=== PATIENT | female | born 1965 | race Caucasian/White ===

== ENCOUNTER 2022-05-21 16:35 | Emergency (ER) | payer SELFPAY ==
[2022-05-21 16:56] VITALS: BP 153/73; PULSE 81; RESP 16; TEMP 37.3; O2SAT 99
--- NOTE | 2022-05-21 17:46 | ED.GENADULT ---
HPI - General Adult General Chief complaint: Unspecified Stated complaint: HBP Time Seen by Provider: 05/21/22 17:40 Source: patient, RN notes reviewed and old records reviewed Mode of arrival: ambulatory Limitations: no limitations History of Present Illness HPI narrative: 57-year-old female who recently moved to the area from around [place] now has a new patient appointment with physician but soonest she can get in was in August and is concerned about having enough blood pressure medication to last till her appointment.Patient takes Losartan/ HCTZ with dosage verified per bottle. Patient states that she is compliant with medication regime. MD complaint: need for refill of new medication Treatments prior to arrival: other (taking medication for blood pressure but will not have enough till apt with new physician) Related Data Home Medications Medication Instructions Recorded Confirmed losartan 05/21/22 Allergies Allergy/AdvReac Type Severity Reaction Status Date / Time No Known Allergies Allergy Verified 05/21/22 16:38 Review of Systems Review of Systems: CONSTITUTIONAL: Denies fever, chills, or sweats. EYES: Denies visual changes, redness, or discharge. ENT: Denies rhinorrhea, congestion, sore throat, or otalgia. CARDIOVASCULAR: Denies chest pain, palpitations, or edema. RESPIRATORY: Denies cough or dyspnea. GASTROINTESTINAL: Denies abdominal pain, nausea, vomiting, or diarrhea. GENITOURINARY: Denies dysuria or hematuria. SKIN: Denies rash or itching. MUSCULOSKELETAL: Denies back pain, joint pain, or myalgia. NEUROLOGIC: Denies headache, numbness, or weakness. PSYCHIATRIC: positive for history of anxiety or depression. All systems reviewed & are unremarkable except as noted in HPI and below [facility] Past Medical History Medical History (Updated 05/27/22 @ 20:00 by Vivien Jose NP) Hypertension Social anxiety disorder Surgical History Surgical History (Updated 05/27/22 @ 20:00 by Vivien Jose NP) No history of previous surgery Family History Family History (Updated 05/27/22 @ 20:02 by Vivien Jose NP) Father Hypertension Heart valve replaced Mother Stomach cancer Grandparent Stomach cancer Social History Social History (Updated 05/27/22 @ 20:05 by Vivien Jose NP) Smoking packs per day: 0.5 Smoking cigarettes per day: 10.0 Years smoked: 20 Smoking pack-years: 10.00 Smoking status: Former smoker Tobacco type: cigarettes Additional smoking assessment comments: quit 2 years ago Alcohol intake: never Substance use type: does not use Gender identity (if verbalized by the patient): Female Comments At time of signature, agree with nursing past medical, surgical, social and family history. There is no relevant family history pertinent to the presenting complaint Exam Narrative: GENERAL: Well-appearing, well-nourished, morbidly obese,and in no acute distress. HEAD: Normocephalic, atraumatic. EYES: PERRLA and EOMI. ENT: Nares clear, no rhinorrhea or epistaxis. Mucous membranes moist.TM's normal with good light reflex, throat pink with no lesions or swelling NECK: Supple. no lymphadenopathy CHEST: Clear to auscultation. No respiratory distress.SAO2 99% on room air HEART: Regular rate and rhythm. No murmur heard. Normal peripheral pulses. ABDOMEN: Soft, nontender, nondistended, normal active bowel sounds. EXTREMITIES: Normal range of motion. No edema. SKIN: Warm, dry, no rash. NEURO: No focal deficits. Alert and oriented x3. Course Course Emergency Course: Patient is aware of diagnosis, understands and agrees to treatment plan.? Anticipatory guidance given.? Patient agrees to follow-up as directed and is aware of reasons to seek care at the emergency department. Portions of this record may have been created with voice recognition software Level of Care: Express Care Visit Vital Signs Vital signs: Vital Signs Temperature 37.3 C 05/21/22 16:
--- NOTE | 2022-05-21 18:11 | PC.NURSE ---
stated was able to get med info. and losartan 100/12.5mg was last rx.
== END 2022-05-21 18:19 | disposition home or self-care (01) ==
PROVIDERS: Emergency Provider Registered Nurse
DX: I10 Essential (primary) hypertension (principal)
CPT/HCPCS: 99203; 99211; G0463